=== PATIENT | female | born 1980 | race Caucasian/White ===

== ENCOUNTER → 2017-10-14 08:38 | Outpatient (CLI) | payer OTHER, SELFPAY ==
[2017-10-14 09:30] LABS: Hematocrit 34.1 % (37-47); Hemoglobin 11.2 g/dl (12.0-15.0); Mean Corp Hgb Conc 32.8 g/gl (32-36); Mean Corpuscular Hgb 29.6 pg (27.0-32.0); Mean Corpuscular Volume 90.2 fL (81-99); Mean Platelet Vol. 9.5 fl (6.2-12.0); Platelet Count 248 K/mm3 (150-450); RBC Distribution Width CV 13.4 % (11.6-14.6); Red Blood Count 3.78 M/mm3 (4.2-5.4); Scan Indicated on CBC? Y/N NO; White Blood Count 10.7 K/mm3 (4.4-11.0)
[2017-10-14 09:40] LABS: Glucose Challenge Gest 1H 50g 111 mg/dL (70-140)
== END ==
PROVIDERS: Visit Provider Obstetrics & Gynecology
DX: Z34.82 Encounter for supervision of other normal pregnancy, second trimester (principal)
CPT/HCPCS: 36415; 82950; 85027

== ENCOUNTER → 2017-12-09 11:23 | Outpatient (CLI) | payer OTHER, SELFPAY ==
[2017-12-09 14:31] LABS: Group B Strep DNA By PCR Negative (Negative); Internal Control PASS; Probe Check PASS; Specimen Processing Control PASS
== END ==
PROVIDERS: Visit Provider Obstetrics & Gynecology
DX: Z36.85 Encounter for antenatal screening for Streptococcus B (principal)
CPT/HCPCS: 87077; 87081; 87653

== ENCOUNTER 2018-01-01 10:50 | Outpatient (CLI) | payer OTHER, SELFPAY ==
[2018-01-01 11:06] VITALS: BMI 39.9
--- NOTE | 2018-01-01 13:35 | OB.TRI.NOTE ---
History of Present Illness Date of Service: 01/01/18 Was patient seen by the physician?: Yes Reason For Visit: R/O LABOR Date of Service: 01/01/18 Final [place]: 01/07/18 Final [place] Source: US <20 weeks Gestational age: 39 Weeks and 1 Days History of Present Illness: 37yo G1 @ 39 1/7wga with c/o painful contractions. +FM. No leaking of fluid. Some spotting. Home Medications Medication Instructions Recorded Ferrous Sulfate [Iron] 325 mg PO DAILY 01/01/18 Vits [Prenatabs FA] 1 tablet PO DAILY 01/01/18 Allergies Penicillins [PCN] Allergy (Verified 01/22/16 16:51) Hives Physical Exam Vitals: AVSS Cervix Dilation (cm): 2.5 Station: -2 Effacement (%): 75 NST - FHR Rate Baby A Baseline: 120 Variability:: Moderate Accelerations:: 15 x 15 Decelerations:: None NST Reactive:: Yes FHR Category:: Category I Uterine Activity:: 2-3/10 min Impression/Plan 27yo G1 @ 39 1/7wga in latent labor, Cat I FHR -Discussed with patient labor plans. She is GBS neg with plans for no epidural. Discussed discharge to home with plan to return in active labor. Comfort measures reviewed. Also discussed continued observation however it may be potential for discharge if contractions slow or admission, but unable to predict the timeline - possible 6-24+ hours. Following discussion, pt opts for discharge to home. -Will d/c home. Advised to return with increased intensity of contractions.
== END 2018-01-01 13:40 | disposition home or self-care (01) ==
LOC: WPOUT 10:54 → WP 01-04 11:59
PROVIDERS: Visit Provider Obstetrics & Gynecology
DX: O62.0 Primary inadequate contractions (principal); Z3A.39 39 weeks gestation of pregnancy
CPT/HCPCS: 59025; 59050; 99218; G0378

== ENCOUNTER 2018-01-02 04:14 | Inpatient (IN) | payer OTHER, SELFPAY ==
[2018-01-01 22:58] VITALS: BMI 39.9
[2018-01-02] MEDS: Lactated Ringers 1,000 ML 50 ML IV ×3 (04:38→10:16)
[2018-01-02 05:01] LABS: Hematocrit 35.7 % (37-47); Hemoglobin 12.2 g/dl (12.0-15.0); Mean Corp Hgb Conc 34.2 g/gl (32-36); Mean Corpuscular Hgb 30.3 pg (27.0-32.0); Mean Corpuscular Volume 88.6 fL (81-99); Mean Platelet Vol. 9.6 fl (6.2-12.0); Platelet Count 298 K/mm3 (150-450); RBC Distribution Width CV 13.6 % (11.6-14.6); Red Blood Count 4.03 M/mm3 (4.2-5.4); White Blood Count 14.8 K/mm3 (4.4-11.0)
[2018-01-02 05:16] LABS: Scan Indicated on CBC? Y/N NO
[2018-01-02] MEDS: Ondansetron 4 MG/2 ML Vial IV (05:40)
[2018-01-02] MEDS: fentaNYL-bupivacaine (epidural) 100 ML BAG EPIDURAL ×2 (06:15→11:35)
[2018-01-02] MEDS: Mag Hydrox/Al Hydrox/Simeth 30 ML UDC PO (07:50)
--- NOTE | 2018-01-02 08:52 | PCM.PN.BLA ---
Progress Note LABOR PROGRESS NOTE No complaints. Comfortable with epidural. AVSS GEN - NAD, AAO x 3 FHR 120, moderate variability, + accelerations, + early decelerations TOCO 3/10 min SVE 6/90/-2 per [facility] [place] A/P: 37yo G1 @ 39 2/7wga in active labor, SROM, Cat I FHR -GBS neg - Continue expectant management, repeat exam approximately 2 hours after last exam -Maternal and statuses overall reassuring
[2018-01-02] MEDS: Oxytocin 30 units/NS 500 ml 30 UNITS/500 ML IV.SOLN 334 UNITS IV (13:50)
[2018-01-02] MEDS: Oxytocin 30 units/NS 500 ml 30 UNITS/500 ML IV.SOLN 167 UNITS IV (14:20)
--- NOTE | 2018-01-02 14:29 | PCM.OB.VAG ---
- Problem List (1) 39 weeks gestation of Status: Acute (2) (spontaneous vaginal delivery) Status: Acute Vaginal Delivery Maternal Presentation: Active Labor Amniotic Membrane Rupture Type: Spontaneous Rupture of Membrane time: 01/02/18 0740h Amniotic Fluid Description: Clear Final [place]: 01/07/18 Final [place] Source: US <20 weeks Gestational age: 39 Weeks and 2 Days Date of Procedure: 01/02/18 Pre-Operative Diagnosis: 39 2/7wga, labor Post-Operative Diagnosis: 39 2/7wga, labor Surgery/ Procedure Performed: Spontaneous Vaginal Delivery Anesthesiologist: Asha Kelsey Type of Anesthesia: Epidural Description of Procedure: Patient was FD/+4 station on my arrival. She pushed to deliver a vigorous male infant in KIMI. The was placed on the maternal abdomen and was further attended by nursery personnel. The cord was doubly clamped and cut after approximately 7 minutes. The placenta delivered spontaneously and appeared intact on inspection. A partial third degree perineal laceration was repaired using 2-0 Chromic to reapproximate the capsule and external anal sphincter using a clockface pattern. The second degree laceration was repaired using 3-0 Vicryl rapide. There was excellent hemostasis. Sponge counts were correct x 2. Presentation: Vertex Placental Delivery Description: Spontaneous Placenta Disposition: [facility] Cord Vessel Description: 3 Vessels Nuchal Cord Compression: Without compression Cord Entanglement: None Drain: Hammond to straight drain Estimated Blood Loss: 250 mL A gender: Male (1 minute): 9 (5 minute): 9 Episiotomy Description: None Laceration: Midline, Perineal Extension/lac, 3rd degree Medications given after delivery: IV Pitocin Complications: None
--- NOTE | 2018-01-02 14:42 | DCINST_ITS ---
Discharge Diet: No Restrictions Discharge Activity: Return to Normal Activity May resume sexual activity in: 6 weeks Lifting Restrictions: 10-20lb Call your doctor if you observe: Fever of 101 or Higher, Inability to urinate, Inability to have a bowel movement, Using more than one pad per hour, Shortness of breath, Chest pain, Calf discomfort, Uncontrolled pain Suture Line Care: Avoid Pulling/Pushing Cleanse incision/area with: Soap & Water Additional Dressing/Incision Instructions:: DO NOT USE ANY DONUT SHAPED CUSHIONS Additional Instructions: If you experience any of the following, contact your healthcare provider. * Bleeding that soaks a pad every hour for 2 hours * Fever 100.4 or higher * Unrelieved incision or abdominal pain * Swelling, redness, discharge or bleeding from your incision or episiotomy site * Your incision begins to separate * Problems urinating (including inability to urinate or burning while urinating) . * Visual changes * Severe headache * Flu-like symptoms * Pain or redness in one of both of your breasts * Pain, warmth, tenderness or swelling in your legs, especially the calf area * Frequent nausea and vomiting * Symptoms of depression or anxiety If you experience any of the following, call 911 or go to the nearest Emergency Room. * Chest pain * Problems breathing * Seizure activity * Partial or complete paralysis of a body part, slurred speech, weakness or drooping of the face, or a sudden inability to walk or hold your balance Allergies/Adverse Reactions: Allergies Penicillins [PCN] Allergy (Severe, Verified 01/01/18 22:59) Anaphylaxis hives and anaphylaxis Medications to take at Discharge Vits [Prenatabs FA ] 1 tablet PO DAILY 01/01/18 Docusate Sodium [Colace] 100 mg PO BID PRN PRN #60 cap 01/03/18 Ibuprofen [Ibu] 600 mg PO TID PRN #30 tab 01/03/18 The following prescriptions were given: Docusate Sodium [Colace] 100 mg PO BID PRN PRN #60 cap PRN Reason: Constipation Ibuprofen [Ibu] 600 mg PO TID PRN #30 tab PRN Reason: Pain Orders to be completed after discharge: Electric breast pump Location: None Selected Please Follow Up With: Demetris Truong MD When: 6 weeks Primary Care Physician: Care Physician,No Primary [Primary Care Provider] -
[2018-01-02 16:08] VITALS: BP 93/52; PULSE 106; RESP 18; TEMP 37.4
[2018-01-02] MEDS: Ibuprofen 600 MG Tablet PO (16:11)
[2018-01-02 19:45] VITALS: BP 116/78; PULSE 80; RESP 16; TEMP 35.8
[2018-01-03] VITALS: BP 93/44; PULSE 88; RESP 16; TEMP 36.7
[2018-01-03] MEDS: Ibuprofen 600 MG Tablet PO ×3 (00:20→18:14)
[2018-01-03] MEDS: Senna/Docusate Sodium 1 Tablet PO (00:21)
[2018-01-03 04:30] VITALS: BP 127/72; PULSE 88; RESP 18; TEMP 36.9
--- NOTE | 2018-01-03 06:45 | PCM.PN.OB ---
Patient Problems: Active and Suspected Problems 39 weeks gestation of (Acute) (spontaneous vaginal delivery) (Acute) Subjective: She is sore, but pain is manageable. She reports severe cramping with nursing periodically. is nursing well. Denies heavy lochia. Objective: AVSS - Physical Exam General: Alert, Oriented x3, Cooperative, No apparent distress HEENT: Atraumatic, Normocephalic Lungs: Normal air movement Cardiovascular: Regular rate, Regular Rhythm, Normal S1, Normal S2 Abdomen: Soft, Non Tender, Non-Distended, - - Fundus firm and nontender, lochia scant Extremities: No edema, No Calf Tenderness Neurological: Neuro grossly intact Psych/Mental Status: Normal Affect, Appropriate, Alert and oriented to time, place, person, mood and affect Vital Signs Temp Pulse Resp BP 98.5 F 88 18 127/72 H 01/03/18 04:30 01/03/18 04:30 01/03/18 04:30 01/03/18 04:30 Oxygen Delivery Method Room Air Weight: 95.7 kg Body Mass Index (BMI) 39.9 Intake and Output for Last 24 Hours 01/01/18 01/02/18 01/03/18 23:59 23:59 23:59 Intake Total 3352 / 3352 Output Total 1000 / 1000 400 / 400 Balance 2352 / 2352 -400 / -400 Laboratory Tests Past 24 Hrs 01/02/18 04:38 Blood Type A POSITIVE Antibody Screen NEGATIVE Medical Necessity - Tobacco Use Smoking Status: Never smoker Assessment/Plan Active and Suspected Problems 39 weeks gestation of (Acute) (spontaneous vaginal delivery) (Acute) 37yo PPD#1 s/p doing well. -Rh positive, Rubella immune -, discussed role of nursing in uterine contraction to prevent heavy bleeding and return uterus to normal size. Pt reassured. Encouraged to request NSAID prior to nursing. -Routine care
[2018-01-03 08:27] VITALS: BP 105/62; PULSE 91; RESP 16; TEMP 37.1
[2018-01-03] MEDS: Prenatal Vits Tablet 1 TABLET PO (10:25)
[2018-01-03 12:10] VITALS: BP 96/57; PULSE 97; RESP 16; TEMP 37.1
[2018-01-03 16:09] VITALS: BP 100/49; PULSE 92; RESP 16; TEMP 37.3
[2018-01-03 20:00] VITALS: BP 103/60; PULSE 93; RESP 18; TEMP 37.3; O2SAT 95
[2018-01-04 02:00] VITALS: BP 101/64; PULSE 82; RESP 16; TEMP 37; O2SAT 95
--- NOTE | 2018-01-04 08:13 | PCM.PN.OB ---
Patient Problems: Active and Suspected Problems 39 weeks gestation of (Acute) (spontaneous vaginal delivery) (Acute) Subjective: No specific complaints. Breast feeding. Bleeding light. Objective: Afeb VSS - Physical Exam General: Alert, Oriented x3, Cooperative, No apparent distress Lungs: Clear to auscultation, Normal air movement Cardiovascular: Regular rate, Regular Rhythm Abdomen: Soft, Non Tender, Non-Distended, - - Fundus firm nontender Extremities: No edema Skin: No rashes Neurological: Neuro grossly intact Psych/Mental Status: Normal Affect Comment: Lochia light Vital Signs Temp Pulse Resp BP Pulse Ox 98.6 F 82 16 101/64 95 01/04/18 02:00 01/04/18 02:00 01/04/18 02:00 01/04/18 02:00 01/04/18 02:00 Oxygen Delivery Method Room Air Weight: 210 lb 15.718 oz Body Mass Index (BMI) 39.9 Intake and Output for Last 24 Hours 01/02/18 01/03/18 01/04/18 23:59 23:59 23:59 Intake Total 3352 / 3352 Output Total 1000 / 1000 400 / 400 Balance 2352 / 2352 -400 / -400 Medical Necessity - Tobacco Use Smoking Status: Never smoker Assessment/Plan Active and Suspected Problems 39 weeks gestation of (Acute) (spontaneous vaginal delivery) (Acute) Doing well no complaints. Cleared for discharge home today. Home going instructions and warnings given.
--- NOTE | 2018-01-04 08:15 | PCM.DC.SUM ---
Discharge Date and Diagnosis - Problem List Patient Problems: Active and Suspected Problems 39 weeks gestation of (Acute) (spontaneous vaginal delivery) (Acute) Date of Admission: 01/02/18 Date of Discharge: 01/04/18 - Primary Discharge Diagnosis Active and Suspected Problems 39 weeks gestation of (Acute) (spontaneous vaginal delivery) (Acute) Hospital Course and Treatment Consultations 01/02/18 04:22 Consult: Anesthesia Routine Comment: Reason For Exam: labor Operations: None Procedures: - - Epidural, Summary of Care Provided: The patient is a 37 year old F [admitted in labor. progressed to FD then pushed to deliver a live male without complication. Post course unremarkable. Discharged home on PP day#2.] Discharge Diet: No Restrictions Discharge Activity: Return to Normal Activity May resume sexual activity in: 6 weeks Call your doctor if you observe: Fever of 101 or Higher, Inability to urinate, Inability to have a bowel movement, Using more than one pad per hour, Shortness of breath, Chest pain, Calf discomfort, Uncontrolled pain Suture Line Care: Avoid Pulling/Pushing Cleanse incision/area with: Soap & Water Additional Dressing/Incision Instructions:: DO NOT USE ANY DONUT SHAPED CUSHIONS Home Medications: Medications to take at Discharge Vits [Prenatabs FA ] 1 tablet PO DAILY 01/01/18 Docusate Sodium [Colace] 100 mg PO BID PRN PRN #60 cap 01/03/18 Ibuprofen [Ibu] 600 mg PO TID PRN #30 tab 01/03/18 Following Prescrptions Were Given to Patient: Docusate Sodium [Colace] 100 mg PO BID PRN PRN #60 cap PRN Reason: Constipation Ibuprofen [Ibu] 600 mg PO TID PRN #30 tab PRN Reason: Pain Other Amb Orders: Electric breast pump Location: None Selected Primary Care Physician: Care Physician,No Primary [Primary Care Provider] - Please Follow Up With: Demetris Truong MD When: 6 weeks Disposition: Home Minutes spent on discharge:: 15 Medical Necessity - Tobacco Use Smoking Status: Never smoker Meaningful Use Info Meaningful Use Diagnoses (Choose all that apply): None applicable
[2018-01-04 08:55] VITALS: BP 108/55; PULSE 95; RESP 16; TEMP 36.7; O2SAT 99
== END 2018-01-04 10:20 | disposition home or self-care (01) | DRG 775 ==
LOC: WPOUT 04:17 → WP 04:17
PROVIDERS: Admitting Provider Obstetrics & Gynecology; Visit Provider Obstetrics & Gynecology
DX: O76 Abnormality in fetal heart rate and rhythm complicating labor and delivery (principal); O70.20 Third degree perineal laceration during delivery, unspecified; O69.81X0 Labor and delivery complicated by cord around neck, without compression, not applicable or unspecified; Z3A.39 39 weeks gestation of pregnancy; Z37.0 Single live birth; O09.513 Supervision of elderly primigravida, third trimester
CPT/HCPCS: 59050; 85027; 86850; 86900; 99218; J7120; G0378; J2405

== ENCOUNTER 2018-01-07 10:00 | Outpatient (CLI) | payer OTHER, SELFPAY | END 2018-01-07 11:00 | disposition home or self-care (01) | LOC: WPOUT 10:02 → WP 10:02 | PROVIDERS: Visit Provider Obstetrics & Gynecology | DX: O92.79 Other disorders of lactation (principal) | CPT/HCPCS: 96152 ==